=== PATIENT | female | born 1945 | race Caucasian/White ===

== ENCOUNTER 2016-08-28 14:33 | Outpatient (CLI) | payer MEDICARE | END 2016-08-28 14:34 | disposition home or self-care (01) | LOC: MADLABBHPM 14:33 | PROVIDERS: ATTEND Family Medicine | DX: R39.15 Urgency of urination (principal) | CPT/HCPCS: 36415; 87086 ==

== ENCOUNTER 2017-01-11 16:49 | Outpatient (CLI) | payer MEDICARE | END 2017-01-11 16:50 | disposition home or self-care (01) | LOC: MADLABBHPM 16:49 | PROVIDERS: ATTEND Family Medicine | DX: N30.01 Acute cystitis with hematuria (principal) | CPT/HCPCS: 87086 ==

== ENCOUNTER 2020-11-15 12:57 | Emergency (ER) | payer MEDICARE ==
[2020-11-15] MEDS ORDERED: Ibuprofen 800 MG TAB ONE (14:29)
[2020-11-15] MEDS ORDERED: HYDROcodone/Acetaminophen 5/325 mg Tablet ONE (14:29)
== END 2020-11-15 15:23 | disposition home or self-care (01) ==
LOC: MADERS 12:57
DX: S42.202A Unspecified fracture of upper end of left humerus, initial encounter for closed fracture (principal); E78.5 Hyperlipidemia, unspecified; I10 Essential (primary) hypertension; Z79.899 Other long term (current) drug therapy; W19.XXXA Unspecified fall, initial encounter
CPT/HCPCS: 23600

== ENCOUNTER 2020-12-25 12:45 | Outpatient (CLI) | payer MEDICARE ==
[2020-12-25 13:08] LABS: #Basophils 0.1 thou/uL (0.0-0.2); #Eosinphils 0.2 thou/uL (0.0-0.7); #Lymphocytes 2.6 thou/uL (1.20-3.40); #Monocytes 0.4 thou/uL (0.11-0.59); #Neutrophils 4.8 thou/uL (1.40-6.50); %Basophils 0.9 % (0.0-1.0); %Lymphocytes 31.9 % (21.0-51.0); %Monocytes 5.1 % (0.0-10.0); %Neutrophils 60.1 % (42.0-75.0); Hemoglobin 13.9 g/dL (12.0-16.0); Mean Corpuscular HGB CONC 31.8 g/dL (32.0-36.0); Mean Corpuscular Hemoglobin 28.1 pg (27.0-31.0); Mean Corpuscular Volume 88.5 fL (78.0-98.0); Platelet Count 281 thou/uL (130-400); RBC Distribution Width 11.4 % (11.5-14.5); Red Blood Cell (RBC) Count 4.95 mill/uL (4.20-5.40)
[2020-12-25 13:23] LABS: ALT (SGPT) 13 U/L (8-55); AST (SGOT) 18 U/L (5-34); Albumin 4.3 g/dL (3.4-4.8); Alkaline Phosphatase 84 U/L (40-110); Anion Gap 13 mmol/L (10-20); BUN (Urea Nitrogen) 12 mg/dL (9.8-20.1); Bilirubin, Total 0.4 mg/dL (0.2-1.2); Calc. Creatinine Clearance 0 mL/min (70-130); Calcium 10.7 mg/dL (7.8-10.44); Carbon Dioxide 27 mmol/L (23-31); Cardiac Risk 3.9 (Less than 4.5); Chloride 104 mmol/L (98-107); Cholesterol 167 mg/dl (< 200 Desired); Globulin 3.2 g/dL (2.4-3.5); Glucose 88 mg/dL (83-110); HDL Cholesterol 43 mg/dL (>60 Neg Risk); LDL Cholesterol, Calculated 100 mg/dL; Potassium 3.8 mmol/L (3.5-5.1); Protein, Total 7.5 g/dL (5.8-8.1); Sodium 140 mmol/L (136-145); Triglycerides 122 mg/dL (Less than 150)
[2020-12-25 17:46] LABS: Hemoglobin A1c 5.1 % (4.0-6.0)
== END 2020-12-25 12:46 | disposition home or self-care (01) ==
LOC: MADRAD 12:45
PROVIDERS: ATTEND Family Medicine
DX: Z00.00 Encounter for general adult medical examination without abnormal findings (principal); N39.498 Other specified urinary incontinence; S42.292D Other displaced fracture of upper end of left humerus, subsequent encounter for fracture with routine healing
CPT/HCPCS: 36415; 80053; 80061; 83036; 84443; 85025; 87086

== ENCOUNTER 2021-06-13 15:25 | Outpatient (CLI) | payer MEDICARE | END 2021-06-13 15:26 | disposition home or self-care (01) | LOC: MADRAD 15:25 | PROVIDERS: ATTEND Family Medicine | DX: M25.561 Pain in right knee (principal); M25.562 Pain in left knee; Q68.2 Congenital deformity of knee; M17.0 Bilateral primary osteoarthritis of knee; T84.194A Other mechanical complication of internal fixation device of right femur, initial encounter; W18.30XA Fall on same level, unspecified, initial encounter | CPT/HCPCS: 73565 ==

== ENCOUNTER 2021-12-04 12:44 | Outpatient (CLI) | payer MEDICARE | END 2021-12-04 12:45 | disposition home or self-care (01) | LOC: MADRAD 12:44 | PROVIDERS: ATTEND Family Medicine | DX: J20.9 Acute bronchitis, unspecified (principal); S42.202A Unspecified fracture of upper end of left humerus, initial encounter for closed fracture | CPT/HCPCS: 71046 ==